=== PATIENT | female | born 1945 | race Caucasian/White ===

== ENCOUNTER → 2016-12-17 | Outpatient (CLI) | payer MEDICARE, OTHER | END | disposition home or self-care (01) | LOC: LAB.O 14:31 | PROVIDERS: ATTEND Nurse Practitioner Family | DX: E55.9 Vitamin D deficiency, unspecified (principal); R29.898 Other symptoms and signs involving the musculoskeletal system; D51.3 Other dietary vitamin B12 deficiency anemia ==